=== PATIENT | male | born 1985 | race Asian ===

== ENCOUNTER 2018-02-22 19:09 | Emergency (ER) | payer MEDICAID ==
--- NOTE | 2018-02-22 19:19 | ED Physician Documentation ---
History of Present Illness - Stated complaint Stated Complaint: SLEEP ISSUES - Chief complaint Chief Complaint: General - History obtained from History obtained from: Patient, Family () - History of Present Illness Timing: How many days ago (2) Pain level max: 0 Pain level now: 0 Improved by: nothing Worsened by: nothing - Additonal information Additional information: Patient is a 32-year-old male who presents to the emergency department with a complaint of not been able sleep for the past 2 days. Feeling anxious. Denies any drug or alcohol use. Patient states that he quit smoking a month ago. States increased stress recently. Review of Systems Ten Systems: 10 systems reviewed and negative Constitutional: denies: Fever, Chills Nose: denies: Rhinorrhea / runny nose, Congestion Cardiac: denies: Palpitations Respiratory: denies: Cough GI: denies: Abdominal Pain, Vomiting, Diarrhea PD PAST MEDICAL HISTORY - Past Medical History Past Medical History: No - Past Surgical History Past Surgical History: No - Present Medications Home Medications: Ambulatory Orders Medication Instructions Recorded Confirmed No Known Home Medications 02/22/18 02/22/18 - Allergies Allergies/Adverse Reactions: Allergies Allergy/AdvReac Type Severity Reaction Status Date / Time No Known Drug Allergies Allergy Verified 02/22/18 19:17 - Living Situation Living Situation: reports: With family Living Arrangement: reports: At home - Social History Does the pt smoke?: No Does the pt drink ETOH?: Yes Does the pt have substance abuse?: No PD ED PE NORMAL - Vitals Vital signs reviewed: Yes - General General: Alert and oriented X 3, Other (darting eyes, restless) - HEENT HEENT: PERRL, Moist mucous membranes - Neck Neck: Supple, no meningeal sign - Cardiac Cardiac: Strong equal pulses, Other (tachycardic) - Respiratory Respiratory: No respiratory distress, Clear bilaterally - Abdomen Abdomen: Soft, Non tender, Non distended - Back Back: No spinal TTP - Derm Derm: Warm and dry - Extremities Extremities: No edema - Neuro Neuro: Alert and oriented X 3 Results - Vitals Vitals: Vital Signs - 24 hr 02/22/18 02/22/18 19:13 20:25 Temperature 36.8 C Heart Rate 138 H 118 H Respiratory 18 18 Rate Blood Pressure 148/115 H 148/106 H O2 Saturation 98 99 Oxygen O2 Source Room air - Labs Labs: Laboratory Tests 02/22/18 02/22/18 02/22/18 19:28 19:48 19:48 WBC 19.2 H RBC 5.40 Hgb 16.1 Hct 46.7 MCV 86.5 MCH 29.9 MCHC 34.6 RDW 13.0 Plt Count 271 MPV 7.3 L Neut # (Auto) 13.5 H Lymph # (Auto) 3.7 H [place] # (Auto) 1.5 H Eos # (Auto) 0.2 Baso # (Auto) 0.3 H Absolute Nucleated RBC 0.00 Nucleated RBC % 0.0 Sodium 136 Potassium 3.5 Chloride 98 L Carbon Dioxide 24 Anion Gap 14.0 H BUN 25 H Creatinine 1.3 H Estimated GFR (MDRD) 64 L Glucose 118 H Calcium 9.9 Total Bilirubin 1.7 H AST 38 ALT 53 Alkaline Phosphatase 77 Total Protein 9.4 H Albumin 5.5 Globulin 3.9 Albumin/Globulin Ratio 1.4 Lipase 22 TSH Urine Color DARK YELLOW Urine Clarity CLEAR Urine pH 5.5 Ur Specific [place] >=1.030 H Urine Protein NEGATIVE Urine Glucose (UA) NEGATIVE Urine Ketones NEGATIVE Urine Occult Blood TRACE-LYSE Urine Nitrite NEGATIVE Urine Bilirubin SMALL H Urine Urobilinogen 0.2 (NORMAL) Ur Leukocyte Esterase NEGATIVE Ur Microscopic Review NOT INDICATED Urine Culture Comments NOT INDICATED Salicylates < 6.0 Urine Opiates Screen NEGATIVE Ur Oxycodone Screen NEGATIVE Urine Methadone Screen NEGATIVE Ur Propoxyphene Screen NEGATIVE Acetaminophen < 10 L Ur Barbiturates Screen NEGATIVE Ur Tricyclics Screen NEGATIVE Ur Phencyclidine Scrn NEGATIVE Ur Amphetamine Screen POSITIVE H U Methamphetamines Scrn POSITIVE H U Benzodiazepines Scrn NEGATIVE Urine Cocaine Screen NEGATIVE U Cannabinoids Screen NEGATIVE Ethyl Alcohol < 5.0 02/22/18 19:48 WBC RBC Hgb Hct MCV MCH MCHC RDW Plt Count MPV Neut # (Auto) Lymph # (Auto) [place] # (Auto) Eos # (Auto) Baso # (Auto) Absolute Nucleated RBC Nucleated RBC % Sodium Potassium Chloride Carbon Dioxide Anion Gap BUN Creatinine Estimated GFR (MDRD) Glucose Calcium Total Bilirubin AST ALT Alkaline Phosphatase Total Protein Albumin Globulin Albumin/Globulin Ratio Lipase TSH 1.75 Urine Color Urine Clarity Urine pH Ur Specific [place] Urine Protein Urine Glucose (UA) Urine Ketones Urine Occult Blood Urine Nitrite Urine Bilirubin Urine Urobilinogen Ur Leukocyte Esterase Ur Microscopic Review Urine Culture Comments Salicylates Urine Opiates Screen Ur Oxycodone Screen Urine Methadone Screen Ur Propoxyphene Screen Acetaminophen Ur Barbiturates Screen Ur Tricyclics Screen Ur Phencyclidine Scrn Ur Amphetamine Screen U Methamphetamines Scrn U Benzodiazepines Scrn Urine Cocaine Screen U Cannabinoids Screen Ethyl Alcohol PD MEDICAL DECISION MAKING - ED course Complexity details: reviewed results, re-evaluated patient, considered differential, d/w patient, d/w family ED course: 32-year-old male high on methamphetamines. Initially denied any drug use, but after urine tox results, he admitted to last using meth yesterday. He and his were given resources for detox. No other acute abnormalities at this time. He is well-appearing, nontoxic. Afebrile. Will allow him to go home with his . Patient and family counseled regarding signs and symptoms for which I believe and urgent re-evaluation would be necessary. Patient with good understanding of and agreement to plan and is comfortable going home at this time This document was made in part using voice recognition software. While efforts are made to proofread this document, sound alike and grammatical errors may occur. No hallucinations or delusions Departure - Departure Disposition: 01 Home, Self Care Clinical Impression: Methamphetamine abuse Condition: Good Instructions: ED Drug Abuse General Follow-Up: Onesimo Galo MD [Primary Care Provider] - Within 1 week Comments: You need to stop using methamphetamines. This is causing you not to sleep. Follow up with your doctor for further care. Discharge Date/Time: 02/22/18 20:26
[2018-02-22 19:38] LABS: MUDS CUTOFF CONCENTRATIONS CUTOFF CONC BELOW:
[2018-02-22 19:45] LABS: GLUCOSE, URINE (UA) NEGATIVE (NEGATIVE); KETONES,URINE (UA) NEGATIVE (NEGATIVE); LEUKOCYTE ESTERASE, URINE NEGATIVE (NEGATIVE); NITRITE,URINE NEGATIVE (NEGATIVE); OCCULT BLOOD,URINE TRACE-LYSE (NEGATIVE); PH,URINE 5.5 PH (5.0-7.5); PROTEIN,URINE NEGATIVE (NEGATIVE); UROBILINOGEN,URINE 0.2 (NORMAL) E.U./dL (NORMAL)
[2018-02-22 19:52] LABS: BILIRUBIN,URINE SMALL (NEGATIVE); CLARITY,URINE CLEAR (CLEAR); ICTOTEST,URINE POSITIVE
[2018-02-22 19:57] LABS: AMPHETAMINE SCREEN,URINE POSITIVE (NEGATIVE); COCAINE SCREEN URINE NEGATIVE (NEGATIVE); METHAMPHETAMINES SCREEN, URINE POSITIVE (NEGATIVE); OPIATE SCREEN, URINE NEGATIVE (NEGATIVE)
[2018-02-22 19:58] LABS: BENZODIAZEPINES SCREEN, URINE NEGATIVE (NEGATIVE); METHADONE SCREEN, URINE NEGATIVE (NEGATIVE); OXYCODONE SCREEN, URINE NEGATIVE (NEGATIVE); PROPOXYPHENE SCREEN, URINE NEGATIVE (NEGATIVE); TRICYCLIC ANTIDEPRESSANT,URINE NEGATIVE (NEGATIVE)
[2018-02-22 20:04] LABS: BASOPHILS # (AUTO) 0.3 10^3/uL (0.0-0.1); BASOPHILS % (AUTO) 1.5 %; EOSINOPHILS # (AUTO) 0.2 10^3/uL (0.0-0.7); EOSINOPHILS % (AUTO) 1.1 %; HGB - HEMOGLOBIN 16.1 g/dL (14.0-18.0); LYMPHOCYTES # (AUTO) 3.7 10^3/uL (1.5-3.5); LYMPHOCYTES % (AUTO) 19.4 %; MEAN CORPUSCULAR HEMOGLOBIN 29.9 pg (27.0-31.0); MEAN CORPUSCULAR HGB CONC 34.6 g/dL (32.0-36.0); MEAN CORPUSCULAR VOLUME 86.5 fL (80.0-94.0); MEAN PLATELET VOLUME 7.3 fL (7.4-11.4); MONOCYTES # (AUTO) 1.5 10^3/uL (0.0-1.0); MONOCYTES % (AUTO) 7.7 %; NEUTROPHILS # (AUTO) 13.5 10^3/uL (1.5-6.6); NEUTROPHILS % (AUTO) 70.3 %; PLT - PLATELET COUNT 271 10^3/uL (130-450); WHITE BLOOD COUNT 19.2 x10^3/uL (4.8-10.8)
[2018-02-22 20:13] LABS: ACETAMINOPHEN < 10 ug/mL (10-30); ALBUMIN 5.5 g/dL (3.2-5.5); ALBUMIN/GLOBULIN RATIO 1.4 (1.0-2.2); ALKALINE PHOSPHATASE 77 IU/L (42-121); ALT ALANINE AMINOTRANSFERASE 53 IU/L (10-60); AST ASPARTATE AMINOTRANSFERASE 38 IU/L (10-42); BILIRUBIN,TOTAL 1.7 mg/dL (0.2-1.0); BUN - BLOOD UREA NITROGEN 25 mg/dL (6-20); CALCIUM 9.9 mg/dL (8.5-10.3); CARBON DIOXIDE - CO2 24 mmol/L (21-32); CHLORIDE 98 mmol/L (101-111); CREATININE 1.3 mg/dL (0.6-1.2); GFR - MDRD 64 (>89); GLUCOSE 118 mg/dL (70-100); LIPASE 22 U/L (22-51); SALICYLATE < 6.0 mg/dL; SODIUM 136 mmol/L (135-145); TOTAL PROTEIN 9.4 g/dL (6.7-8.2)
[2018-02-22 20:26] VITALS: BP 148/106
== END 2018-02-22 20:26 | disposition home or self-care (01) ==
LOC: ED 19:09
DX: F15.10 Other stimulant abuse, uncomplicated (principal)
CPT/HCPCS: 36415; 80053; 80306; 80307; 80320; 80329; 81001; 81003; 83690; 84443; 85025; 87086; 93005; 99283

== ENCOUNTER 2018-04-04 08:00 | Outpatient (CLI) | payer MEDICAID ==
[2018-04-04 12:46] LABS: BASOPHILS % (AUTO) 0.2 %; EOSINOPHILS # (AUTO) 0.5 10^3/uL (0.0-0.7); EOSINOPHILS % (AUTO) 3.5 %; HGB - HEMOGLOBIN 14.9 g/dL (14.0-18.0); LYMPHOCYTES # (AUTO) 3.5 10^3/uL (1.5-3.5); LYMPHOCYTES % (AUTO) 26.9 %; MEAN CORPUSCULAR HEMOGLOBIN 29.3 pg (27.0-31.0); MEAN CORPUSCULAR HGB CONC 34.5 g/dL (32.0-36.0); MEAN CORPUSCULAR VOLUME 84.9 fL (80.0-94.0); MONOCYTES # (AUTO) 0.7 10^3/uL (0.0-1.0); MONOCYTES % (AUTO) 5.6 %; NEUTROPHILS # (AUTO) 8.3 10^3/uL (1.5-6.6); NEUTROPHILS % (AUTO) 63.8 %; PLT - PLATELET COUNT 271 10^3/uL (130-450); RED BLOOD COUNT 5.08 10^6/uL (4.70-6.10); RED CELL DISTRIBUTION WIDTH 12.9 % (12.0-15.0)
[2018-04-04 12:56] LABS: ALBUMIN 4.7 g/dL (3.2-5.5); ALBUMIN/GLOBULIN RATIO 1.6 (1.0-2.2); ALKALINE PHOSPHATASE 67 IU/L (42-121); ALT ALANINE AMINOTRANSFERASE 29 IU/L (10-60); AST ASPARTATE AMINOTRANSFERASE 20 IU/L (10-42); BILIRUBIN,TOTAL 0.9 mg/dL (0.2-1.0); BUN - BLOOD UREA NITROGEN 18 mg/dL (6-20); CALCIUM 9.4 mg/dL (8.5-10.3); CARBON DIOXIDE - CO2 26 mmol/L (21-32); CHLORIDE 102 mmol/L (101-111); CHOL/HDL RATIO 6.7 (<5.0); CHOLESTEROL 209 mg/dL; CREATININE 1.1 mg/dL (0.6-1.2); GFR - MDRD 77 (>89); GLUCOSE 100 mg/dL (70-100); HDL CHOLESTEROL 31 mg/dL; LDL CHOLESTEROL,CALCULATED 133 mg/dL; LDL/HDL RATIO 4.3 (<3.6); SODIUM 137 mmol/L (135-145); TOTAL PROTEIN 7.6 g/dL (6.7-8.2); URIC ACID 10.9 mg/dL (2.6-7.2); VLDL CHOLESTEROL 45 mg/dL
== END 2018-04-04 23:59 | disposition home or self-care (01) ==
LOC: LAB.N 08:00
PROVIDERS: ATTEND Physician Assistant Medical
DX: F33.0 Major depressive disorder, recurrent, mild (principal); F41.1 Generalized anxiety disorder; E78.1 Pure hyperglyceridemia; E66.9 Obesity, unspecified; M10.9 Gout, unspecified
CPT/HCPCS: 36415; 80053; 80061; 83721; 84443; 84550; 85025

== ENCOUNTER 2019-02-05 09:02 | Outpatient (CLI) | payer MEDICAID | END 2019-02-05 23:59 | disposition home or self-care (01) | LOC: LAB.N 09:02 | PROVIDERS: ATTEND Physician Assistant Medical | DX: E79.0 Hyperuricemia without signs of inflammatory arthritis and tophaceous disease (principal); M10.9 Gout, unspecified | CPT/HCPCS: 36415; 84550 ==

== ENCOUNTER 2019-03-23 08:00 | Outpatient (CLI) | payer MEDICAID ==
[2019-03-23 12:29] LABS: CHOL/HDL RATIO 5.6 (<5.0); CHOLESTEROL 219 mg/dL; HDL CHOLESTEROL 39 mg/dL
[2019-03-23 13:17] LABS: LDL CHOLESTEROL,DIRECT 111 mg/dL; LDLD/HDL RATIO 2.8 (<3.6)
== END 2019-03-23 23:59 | disposition home or self-care (01) ==
LOC: LAB.N 08:00
PROVIDERS: ATTEND Physician Assistant Medical
DX: E78.5 Hyperlipidemia, unspecified (principal)
CPT/HCPCS: 36415; 80061; 83721

== ENCOUNTER 2019-11-19 13:36 | Outpatient (CLI) | payer MEDICAID | END 2019-11-19 13:37 | disposition home or self-care (01) | LOC: LAB 13:36 | PROVIDERS: ATTEND Physician Assistant Medical | DX: R50.9 Fever, unspecified (principal); Z20.828 Contact with and (suspected) exposure to other viral communicable diseases ==

== ENCOUNTER 2022-08-18 09:10 | Outpatient (CLI) | payer MEDICAID ==
[2022-08-18 12:04] LABS: ALBUMIN 4.4 g/dL (3.2-5.5); ALKALINE PHOSPHATASE 111 IU/L (42-121); ALT ALANINE AMINOTRANSFERASE 77 IU/L (10-60); AST ASPARTATE AMINOTRANSFERASE 42 IU/L (10-42); BASOPHILS % (AUTO) 0.3 %; BILIRUBIN,TOTAL 0.5 mg/dL (0.2-1.0); BUN - BLOOD UREA NITROGEN 13 mg/dL (6-20); CARBON DIOXIDE - CO2 28 mmol/L (21-32); CHLORIDE 102 mmol/L (101-111); CHOL/HDL RATIO 5.7 (<5.0); CHOLESTEROL 238 mg/dL; CREATININE 0.8 mg/dL (0.6-1.2); EOSINOPHILS # (AUTO) 0.4 10^3/uL (0.0-0.7); EOSINOPHILS % (AUTO) 3.7 %; GFR - MDRD 109 (>89); GLUCOSE 88 mg/dL (70-100); HCT - HEMATOCRIT 44.6 % (42.0-52.0); HDL CHOLESTEROL 42 mg/dL; HGB - HEMOGLOBIN 14.2 g/dL (14.0-18.0); LDL CHOLESTEROL,CALCULATED 129 mg/dL; LDL/HDL RATIO 3.1 (<3.6); LYMPHOCYTES # (AUTO) 3.4 10^3/uL (1.5-3.5); LYMPHOCYTES % (AUTO) 29.1 %; MEAN CORPUSCULAR HEMOGLOBIN 27.6 pg (27.0-31.0); MEAN CORPUSCULAR HGB CONC 31.8 g/dL (32.0-36.0); MEAN CORPUSCULAR VOLUME 86.8 fL (80.0-94.0); MEAN PLATELET VOLUME 8.6 fL (7.4-11.4); MONOCYTES # (AUTO) 0.7 10^3/uL (0.0-1.0); MONOCYTES % (AUTO) 6.3 %; NEUTROPHILS # (AUTO) 7.1 10^3/uL (1.5-6.6); PLT - PLATELET COUNT 429 10^3/uL (130-450); POTASSIUM 4.4 mmol/L (3.5-5.0); RED BLOOD COUNT 5.14 10^6/uL (4.70-6.10); RED CELL DISTRIBUTION WIDTH 12.2 % (12.0-15.0); SODIUM 137 mmol/L (135-145); TRIGLYCERIDES 334 mg/dL; URIC ACID 7.6 mg/dL (2.6-7.2); VLDL CHOLESTEROL 67 mg/dL; WHITE BLOOD COUNT 11.8 x10^3/uL (4.8-10.8)
== END 2022-08-18 09:11 | disposition home or self-care (01) ==
LOC: LAB.N 09:10
PROVIDERS: ATTEND Nurse Practitioner
DX: E78.5 Hyperlipidemia, unspecified (principal); Z51.81 Encounter for therapeutic drug level monitoring; M10.9 Gout, unspecified
CPT/HCPCS: 36415; 80053; 80061; 83721; 84550; 85025

== ENCOUNTER 2024-03-07 18:05 | Observation (INO) ==
[2024-03-07 18:32] LABS: BASOPHILS % (AUTO) 0.2 %; EOSINOPHILS # (AUTO) 0.1 10^3/uL (0.0-0.7); EOSINOPHILS % (AUTO) 0.5 %; HCT - HEMATOCRIT 40.7 % (42.0-52.0); HGB - HEMOGLOBIN 14.2 g/dL (14.0-18.0); LYMPHOCYTES # (AUTO) 1.4 10^3/uL (1.5-3.5); LYMPHOCYTES % (AUTO) 9.5 %; MEAN CORPUSCULAR HEMOGLOBIN 29.5 pg (27.0-31.0); MEAN CORPUSCULAR HGB CONC 34.9 g/dL (32.0-36.0); MEAN CORPUSCULAR VOLUME 84.6 fL (80.0-94.0); MEAN PLATELET VOLUME 8.3 fL (7.4-11.4); MONOCYTES # (AUTO) 1.4 10^3/uL (0.0-1.0); MONOCYTES % (AUTO) 8.9 %; NEUTROPHILS # (AUTO) 12.2 10^3/uL (1.5-6.6); NEUTROPHILS % (AUTO) 80.1 %; PLT - PLATELET COUNT 304 10^3/uL (130-450); RED BLOOD COUNT 4.81 10^6/uL (4.70-6.10); RED CELL DISTRIBUTION WIDTH 12.3 % (12.0-15.0); WHITE BLOOD COUNT 15.2 x10^3/uL (4.8-10.8)
--- NOTE | 2024-03-07 18:39 | ED Physician Documentation ---
History of Present Illness Stated complaint Stated Complaint: AMS Chief complaint Chief Complaint: General Additonal information Additional information: 38-year-old male with history of gout, methamphetamine use, smoking presents with [facility] via EMS. Reportedly, patient's said the patient seemed confused today and was concerned he might have taken something on Tuesday, several days ago, because he has not slept or eaten well since then. Patient's right hand showed some redness with streaking. He has history of drug use. Patient has trouble providing additional history. Spouse here states this has not had before, though otherwise has no additional history beyond above, stating she was not aware patient's hand was swollen for that he had a fever. She is not aware how long ago last drug use was. Please note I am seeing this patient at the very end of my shift to initiate care given potential sepsis and will be signing out to oncoming ER physician. Review of Systems ROS: patient and spouse unable to provide additional information beyond above Meds/Allgy Home Medications Ambulatory Orders Medication Instructions Recorded Confirmed albuterol sulfate 90 mcg/actuation 2 inh inhalation QID #1 ea 02/12/24 breath activated powder inhaler benzonatate 100 mg capsule 100 mg PO TID #90 caps 02/12/24 guaifenesin 600 mg tablet, 600 mg PO BID #60 tabs 02/12/24 extended release 12 hr (Mucinex) Allergies Allergies Allergy/AdvReac Type Severity Reaction Status Date / Time No Known Drug Allergies Allergy Verified 03/07/24 18:23 [facility] Medical History Medical History Gout Methamphetamine abuse Social History Social History Smoking Status: Former smoker Living arrangement: At home Living Condition: With family Relationship: Spouse History of Abuse: No Frequency: Occasional Substance Use: denies use POLST Patient has POLST: No Exam Exam Const: no acute distress, +toxic appearing; patient confused, looking around room, unable to cooperate with exam or answer questions, making mumbling sounds Eyes: PERRLA, EOMI, no photophobia ENT: mucous membranes moist Neck: supple, non-tender; no pain or stiffness with flexion Resp: no respiratory distress, clear to auscultation bilaterally Card: regular tachycardia 140s, no murmurs Abd: non tender diffusely, no rigidity or rebound or guarding Back: no T or L spine tenderness, no CVA tenderness bilaterally Extrem: no deformities, no swelling bilateral lower extremities; R thumb with interphalangeal joint erythema, swelling and tenderness, with blanching erythema streaking to forearm Neuro: Alert but not oriented, insect control inspector grossly intact, grossly intact sensation and strength all extremities, no lateralizing signs, no clonus bilateral lower extremities Skin: no rash, warm and dry Results Vitals Vitals: Vital Signs - 24 hr 03/07/24 18:13 03/07/24 18:46 03/07/24 19:04 Temperature 38.3 C H Temperature Source Oral Pulse Rate 134 H 144 H 126 H Respiratory Rate 17 24 18 Blood Pressure 175/120 H 166/114 H 155/106 H O2 Saturation 99 100 98 O2 Source Room air Room air Room air Pain Intensity 0 Oxygen O2 Source Room air Labs Labs: Laboratory Tests 03/07/24 18:17 WBC 15.2 H RBC 4.81 Hgb 14.2 Hct 40.7 L MCV 84.6 MCH 29.5 MCHC 34.9 RDW 12.3 Plt Count 304 MPV 8.3 Neut # (Auto) 12.2 H Lymph # (Auto) 1.4 L [place] # (Auto) 1.4 H Eos # (Auto) 0.1 Baso # (Auto) 0.0 Absolute Nucleated RBC 0.00 Nucleated RBC % 0.0 Sodium 133 L Potassium 3.2 L Chloride 99 L Carbon Dioxide 18 L Anion Gap 16.0 H BUN 18 Creatinine 1.5 H Estimated GFR (MDRD) 52 L Glucose 128 H Calcium 10.2 Total Bilirubin 1.4 H AST 22 ALT 23 Alkaline Phosphatase 78 Total Protein 8.6 Albumin 4.6 Globulin 4.0 Albumin/Globulin Ratio 1.2 Lipase 19 TSH 2.01 Salicylates < 1.5 Acetaminophen 0.4 Ethyl Alcohol < 10.0 PD Medical Decision Making ED course ED course: This patient presents altered, febrile, tachycardic, meeting septic criteria, with a broad differential I considered including sepsis such as from cellulitis, septic arthritis, pneumonia, urinary infection, meningitis less likely in the setting of no meningeal signs on exam. He has benign abdomen. Given reported history of substance use, he would also be at risk for endocarditis, though no murmur on exam. Toxicologic causes also considered. No clonus or elevated tone to suggest serotonin syndrome or NMS currently. Salicylate or diphenhydramine overdose possible though would seem less likely with reported multiple days of symptoms. I am ordering broad and aggressive workup with CBC, CMP, Tylenol and salicylate and ethanol levels, blood cultures x 2, lactate, EKG, viral swab, chest x-ray, TSH. I am giving 2 L normal saline with IV Tylenol and broad- spectrum antibiotics with vancomycin, cefepime, Flagyl. I am seeing this patient as noted at the very end of my shift and initiating workup, with anticipation of signout soon to oncoming physician for reassessment and completion of workup. EKG sinus tachycardia without acute ischemia or immediately concerning interval prolongation on my review. Signing out to insurance billing specialist Dr. Zaman at 1900 with plan to complete work up as above and closely reassess. Patient currently hypertensive, not hypotensive, with <2s cap refill on exam. Discharge Plan Discharge Prescriptions: No Action guaifenesin [Mucinex] 600 mg tablet extended release 12hr 600 mg PO BID Qty: 60 0RF albuterol sulfate 90 mcg/actuation aerosol powdr breath activated 2 inh inhalation QID Qty: 1 2RF benzonatate 100 mg capsule 100 mg PO TID Qty: 90 0RF Print Language: Burkinan Stand Alone Forms: PCP List
[2024-03-07 18:42] LABS: ACETAMINOPHEN 0.4 ug/mL; ETOH - ETHANOL < 10.0 mg/dL; LIPASE 19 U/L (11-82)
[2024-03-07 18:47] LABS: ALBUMIN 4.6 g/dL (3.2-5.5); ALBUMIN/GLOBULIN RATIO 1.2 (1.0-2.2); ALKALINE PHOSPHATASE 78 IU/L (42-121); ALT ALANINE AMINOTRANSFERASE 23 IU/L (10-60); AST ASPARTATE AMINOTRANSFERASE 22 IU/L (10-42); BILIRUBIN,TOTAL 1.4 mg/dL (0.2-1.0); BUN - BLOOD UREA NITROGEN 18 mg/dL (6-20); CALCIUM 10.2 mg/dL (8.5-10.3); CARBON DIOXIDE - CO2 18 mmol/L (21-32); CHLORIDE 99 mmol/L (101-111); CREATININE 1.5 mg/dL (0.6-1.3); GFR - MDRD 52 (>89); GLUCOSE 128 mg/dL (74-104); POTASSIUM 3.2 mmol/L (3.5-4.5); SALICYLATE < 1.5 mg/dL; SODIUM 133 mmol/L (135-145); TOTAL PROTEIN 8.6 g/dL (6.4-8.9)
[2024-03-07 18:53] LABS: THYROID STIMULATING HORMONE 2.01 uIU/mL (0.34-5.60)
[2024-03-07] MEDS: SODIUM CHLORIDE 0.9% 2,000 ML IV STA (19:21)
[2024-03-07] MEDS: ACETAMINOPHEN 1,000 MG/100 ML 1,000 MG/100 ML BAG IV ONE (19:22)
[2024-03-07] MEDS: CEFEPIME 2 GM in SODIUM CHLORIDE 0.9% MINIBAG 100 ML IV STA (19:22)
[2024-03-07 19:41] LABS: THYROID STIMULATING HORMONE 1.99 uIU/mL (0.34-5.60)
[2024-03-07] MEDS: metroNIDAZOLE 500 MG/100 ML 500 MG/100 ML BAG IV ONE (19:48)
--- NOTE | 2024-03-07 19:52 | XRAY Report ---
PROCEDURE: XR Chest 1V INDICATIONS: AMS, fever TECHNIQUE: One view of the chest was acquired. COMPARISON: 02/12/2024. FINDINGS: Surgical changes and devices: None. Lungs and pleura: No pleural effusions or pneumothorax. Low lung volumes. No consolidation. Mediastinum: Mediastinal contours appear normal. Heart size is normal. Bones and chest wall: No suspicious bony lesions. Overlying soft tissues appear unremarkable. IMPRESSION: No acute cardiopulmonary process. Reviewed by: Constantine Villeda MD on 03/07/2024 7:51 PM PST Approved by: Constantine Villeda MD on 03/07/2024 7:51 PM PST Station ID: [id number]
[2024-03-07] MEDS: VANCOMYCIN INJ 2 GM in SODIUM CHLORIDE 0.9% 500 ML IV STA (19:57)
[2024-03-07 20:09] LABS: B. PARAPERTUSSIS- RESP PCR PAN NOT DETECTED; B. PERTUSSIS- RESP PCR PANEL NOT DETECTED; C. PNEUMONIAE- RESP PCR PANEL NOT DETECTED; CORONAVIRUS 229E-RESP PCR NOT DETECTED; CORONAVIRUS HKU1-RESP PCR NOT DETECTED; CORONAVIRUS NL63-RESP PCR NOT DETECTED; CORONAVIRUS OC43-RESP PCR NOT DETECTED; HUMAN METAPNEUMOVIRUS NOT DETECTED; INFLUENZA A- RESP PCR PANEL NOT DETECTED; INFLUENZA B - RESP PCR PANEL NOT DETECTED; M. PNEUMONIAE- RESP PCR PANEL NOT DETECTED; PARAINFLUENZA VIRUS 1 NOT DETECTED; PARAINFLUENZA VIRUS 2 NOT DETECTED; PARAINFLUENZA VIRUS 3 NOT DETECTED; PARAINFLUENZA VIRUS 4 NOT DETECTED; RHINOVIRUS/ENTEROVIRUS NOT DETECTED; RSV- RESP PCR PANEL NOT DETECTED; SARS-CoV-2 -RESP PCR PANEL NOT DETECTED
[2024-03-07] MEDS: KETOROLAC 30 MG/ML VIAL IVP STA (20:54)
[2024-03-07] MEDS: diphenhydrAMINE INJ 50 MG/ML VIAL IVP STA (21:15)
[2024-03-07] MEDS: methylPREDNISolone SUCCINATE 125 MG/2 ML VIAL IVP STA (21:17)
--- NOTE | 2024-03-07 21:40 | CT Report ---
PROCEDURE: CT Head WO INDICATIONS: AMS TECHNIQUE: Noncontrast 4.5 mm thick angled axial sections acquired from the foramen magnum to the vertex. For r adiation dose reduction, the following was used: automated exposure control, adjustment of mA and/or kV according to patient size. COMPARISON: None. FINDINGS: Image quality: Excellent. CSF spaces: Basal cisterns are patent. No extra-axial fluid collections. Ventricles are normal in size and shape. Brain: No midline shift. No intracranial masses or hemorrhage. Gross-white matter interface is norm al. Skull and face: Calvarium and visualized facial bones are intact, without suspicious lesions. Sinuses: Mucosal thickening or mucous retention cyst at the left maxillary sinus. Mastoids are clear. IMPRESSION: No acute intracranial pathology. Reviewed by: Konstantin Hayden MD on 03/07/2024 9:39 PM PST Approved by: Konstantin Hayden MD on 03/07/2024 9:39 PM PST Station ID: [id number]
[2024-03-07 22:10] LABS: BILIRUBIN,URINE NEGATIVE (NEGATIVE); GLUCOSE, URINE (UA) NEGATIVE (NEGATIVE); KETONES,URINE (UA) 15 mg/dL (NEGATIVE); LEUKOCYTE ESTERASE, URINE NEGATIVE (NEGATIVE); NITRITE,URINE NEGATIVE (NEGATIVE); OCCULT BLOOD,URINE NEGATIVE (NEGATIVE); PROTEIN,URINE NEGATIVE (NEGATIVE); UROBILINOGEN,URINE 0.2 (NORMAL) E.U./dL (NORMAL)
[2024-03-07 22:12] LABS: CLARITY,URINE CLEAR (CLEAR)
[2024-03-07 22:20] LABS: AMPHETAMINE SCREEN,URINE POSITIVE (NEGATIVE); BARBITURATE SCREEN,UR NEGATIVE (NEGATIVE); BENZODIAZEPINES SCREEN, URINE NEGATIVE (NEGATIVE); BUPRENORPHINE SCREEN, URINE NEGATIVE (NEGATIVE); COCAINE SCREEN URINE NEGATIVE (NEGATIVE); METHADONE SCREEN, URINE NEGATIVE (NEGATIVE); METHAMPHETAMINES SCREEN, URINE POSITIVE (NEGATIVE); OPIATE SCREEN, URINE NEGATIVE (NEGATIVE); OXYCODONE SCREEN, URINE NEGATIVE (NEGATIVE); THC CANNABINOID SCREEN, URINE NEGATIVE (NEGATIVE); TRICYCLIC ANTIDEPRESSANT,URINE NEGATIVE (NEGATIVE)
[2024-03-07] MEDS: LORazepam 2 MG/ML VIAL IVP STA (22:38)
[2024-03-07] MEDS ORDERED: LORazepam 2 MG/ML VIAL IVP PRN (22:55)
--- NOTE | 2024-03-07 23:16 | HISTORY & PHYSICAL EXAMINATION ---
Chief Complaint Chief Complaint Chief Complaint: altered mental status History of Present Illness Admitted From Admitted From:: home History Obtained From Records Reviewed: yes History obtained from: ED physician, Exam Limitations: Acute confusion, telemedicine History of Present Illness HPI Comment/Other: Mr. Martinez is a 38yoM with a history of hypertension, gout and polysubstance abuse. He was brought in by EMS for persistent confusion that started 3 days prior to his presentation. In the ED patient was alert, but appeared agitated. CT head was negative. UA was positive for amphetamines. is uncertain when or how much he has been using. patient met SIRS criteria on presentation. No actual source of infection. He has bilateral swelling of his hand, but his explained that it appeared to be typical of an acute gout flare. Patient did not endorse MOMIN, vision changes, neck or chest pain. He had to receive sedatives due to increase agitation. Due to the worsening of his mental status and the possibility of sepsis, I will admit the patient for further evaluation and management during my evaluation. Patient was resting, secondary to Ativan sedation given by Ed provider. was at bedside. Plan of care was discussed including monitor for suspected drug-induced psychosis and evaluation for possible infection. she agreed with the plan of care. she is serving as the patient's POA. This visit was performed using telemedicine tools including phone and live-video. Review of Systems Status of ROS: 10 or more systems reviewed and unremarkable except as noted in history and below [facility] Medical History Medical History (Updated 03/08/24 @ 00:00 by Ranjana Schilling RN) H/O: HTN (hypertension) Gout Methamphetamine abuse Social History Social History Smoking Status: Former smoker Living arrangement: At home Living Condition: With family Relationship: Spouse History of Abuse: No Frequency: Occasional Substance Use: denies use POLST Patient has POLST: No Meds/Allgy Home Medications Ambulatory Orders Medication Instructions Recorded Confirmed allopurinol 300 mg tablet 300 mg PO DAILY 03/07/24 03/07/24 colchicine 0.6 mg tablet 0.6 mg PO DAILY PRN Gout 03/07/24 03/07/24 indomethacin 50 mg capsule 50 mg PO TID PRN gout 03/07/24 03/07/24 lisinopril 10 mg tablet 10 mg PO DAILY 03/07/24 03/07/24 Allergies Allergies Allergy/AdvReac Type Severity Reaction Status Date / Time vancomycin Allergy Hives Verified 03/07/24 23:52 Exam Exam Examination , as recorded, was obtained from staff or patient reported finding, and through peripheral observation Constitutional normal general appearance and no apparent distress HENMT normocephalic Eyes PERRL and EOMs intact bilaterally Neck/C-Spine visual inspection normal, cervical spine nontender, cervical full ROM noted and no meningeal signs Respiratory breath sounds equal bilaterally and no use of accessory muscles Cardiovascular heart rate abnormal (tachycardic) and regular rhythm noted Neurology corner trimmer operator II-XII intact, movement abnormality noted (tics) and no focal motor deficit noted Psychiatry mental status abnormal, orientation abnormal and psychomotor abnormality noted (agitated), (restless) and (hyperactive) Conclusion/Plan Problem List (1) AMS (altered mental status): Plan: Suspected substance induced. Infection can not be excluded although less likely, workup negative. Negative clinical finding of acute DEVELOPMENTAL MATHEMATICS PROFESSOR infection. I Will continue to monitor and manage as follows: - I have reviewed CT head: without any acute intracranial process -I have reviewed pertinent labs: UA consistent amphetamine abuse. No reports from family of patient taking medications that could result in false positive. -I will order for close monitoring with serial neurochecks as appropriate -I will order to continue Ativan 1mg IV for acute agitation and substance withdrawals -i will order urine analysis with cultures (if appropriate) and blood cultures have been ordered to evaluate for possible infectious etiology -If symptoms do not improve with conservative manage or if patient should spike fevers or become worse further evaluation may be warranted by additional imaging with MRI, EEG and neurology consultation Qualifiers: Altered mental status type: delirium Qualified Code(s): R41.0 - Disorientation, unspecified (2) SIRS (systemic inflammatory response syndrome): Plan: SIRS criteria met: fever, tachycardia, leukocytosis. Normal lactic.suspected acute stress response in the setting of amphetamine toxicity. Will evaluate for additional sources and manage as follows: -follow up cultures for source of possible infection -i will initiate empiric antibiotic coverage with cefepime and vancomycin, and will monitor drug levels to avoid toxicity or adverse affects. Will avoid MAO inhibiter such as linezolid in the setting of amphetamine toxicity -I have reviewed viral panel, which was negative -I will manage fevers and pain conservatively with tylenol and ibuprofen, to avoid opiods. - I have ordered for continuos telemetry to monitor vitals closely,as well as serial bp and temperature checks (3) Gout attack: Plan: Acute on chronic, mainly affecting hands and fingers - I will order an uric acid level -I will continue cholchicine and NSAID for inflammation -Will advise usage of heating and icepacks as needed for breakthrough pain. Qualifiers: Gout site: multiple sites Gout etiology: unspecified cause Qualified Code(s): M10.9 - Gout, unspecified Lab Results Lab results reviewed: Yes 03/07/24 18:17 03/07/24 18:17 Diagnostic Imaging Results Diagnostic Imaging Results: positive Final report reviewed Core Measures Anticipated LOS I expect patient to be DC'd or transferred within 96 hours.: Yes DVT/VTE - Prophylaxis VTE/DVT Device ordered at admit?: Yes Telemedicine Consult Details Provider Location & Consult Time Telemedicine consultation conducted via videoconferencing?: Yes
[2024-03-08] MEDS ORDERED: ONDANSETRON 4 MG/2 ML VIAL IVP PRN (00:16)
[2024-03-08] MEDS ORDERED: ACETAMINOPHEN 325 MG TABLET PO PRN (00:16)
[2024-03-08] MEDS ORDERED: SODIUM CHLORIDE FLUSH 0.9% 10 ML SYRINGE IVP PRN (00:16)
[2024-03-08] MEDS ORDERED: IBUPROFEN 400 MG TABLET PO PRN (00:16)
[2024-03-08] MEDS ORDERED: INDOMETHACIN 25 MG CAPSULE PO PRN (00:16)
[2024-03-08] MEDS: SODIUM CHLORIDE FLUSH 0.9% 10 ML SYRINGE IVP SCH (00:41)
[2024-03-08] MEDS: SODIUM CHLORIDE 0.9% 1,000 ML IV SCH (00:41)
[2024-03-08 05:45] LABS: BASOPHILS % (AUTO) 0.2 %; EOSINOPHILS % (AUTO) 0.1 %; HCT - HEMATOCRIT 37.7 % (42.0-52.0); HGB - HEMOGLOBIN 12.6 g/dL (14.0-18.0); LYMPHOCYTES % (AUTO) 7.8 %; MEAN CORPUSCULAR HEMOGLOBIN 29.6 pg (27.0-31.0); MEAN CORPUSCULAR HGB CONC 33.4 g/dL (32.0-36.0); MEAN CORPUSCULAR VOLUME 88.7 fL (80.0-94.0); MEAN PLATELET VOLUME 8.5 fL (7.4-11.4); MONOCYTES # (AUTO) 0.2 10^3/uL (0.0-1.0); MONOCYTES % (AUTO) 1.4 %; NEUTROPHILS # (AUTO) 11.1 10^3/uL (1.5-6.6); NEUTROPHILS % (AUTO) 89.9 %; PLT - PLATELET COUNT 289 10^3/uL (130-450); RED BLOOD COUNT 4.25 10^6/uL (4.70-6.10); RED CELL DISTRIBUTION WIDTH 12.4 % (12.0-15.0); WHITE BLOOD COUNT 12.4 x10^3/uL (4.8-10.8)
[2024-03-08 05:58] LABS: ALBUMIN 3.9 g/dL (3.2-5.5); ALBUMIN/GLOBULIN RATIO 1.1 (1.0-2.2); CALCIUM 9.2 mg/dL (8.5-10.3); CREATININE 0.9 mg/dL (0.6-1.3); POTASSIUM 4.2 mmol/L (3.5-4.5); TOTAL PROTEIN 7.6 g/dL (6.4-8.9)
[2024-03-08] MEDS: COLCHICINE 0.6 MG TABLET PO PRN (06:05)
[2024-03-08] MEDS: allopurinoL 100 MG TABLET PO SCH (09:15)
[2024-03-08] MEDS: lisinopriL 5 MG TABLET PO SCH (09:15)
[2024-03-08] MEDS: CEFEPIME 2 GM in SODIUM CHLORIDE 0.9% MINIBAG 100 ML IV SCH (09:16)
[2024-03-08] MEDS: COLCHICINE 0.6 MG TABLET PO SCH (09:17)
[2024-03-08] MEDS: INDOMETHACIN 25 MG CAPSULE PO STA (09:20)
[2024-03-08 10:16] LABS: ESTIMATED AVERAGE GLUCOSE 100 mg/dL (70-100); HEMOGLOBIN A1c% 5.1 % (4.27-6.07)
--- NOTE | 2024-03-08 10:43 | PHARMACY PROGRESS NOTE ---
Best Possible Medication History Admit Date and Time: 03/07/24 [id number] Home Medications Medication Instructions Recorded Confirmed Type allopurinol 300 mg tablet 300 mg PO DAILY 03/07/24 03/07/24 History colchicine 0.6 mg tablet 0.6 mg PO DAILY PRN Gout 03/07/24 03/07/24 History indomethacin 50 mg capsule 50 mg PO TID PRN gout 03/07/24 03/07/24 History lisinopril 10 mg tablet 10 mg PO DAILY 03/07/24 03/07/24 History Processed by: Pharmacy (Medication reconciliation completed by health technicianKelly) Medications reviewed in ED?: No Medication History completed: Yes Patient Interview: Completed Secondary Source(s): Insurance records [facility] Statement: As the person ultimately responsible for medication therapy, providers are able to order a medication from an existing home medication list in [facility] via the "Reconcile Routine" prior to Confirmation of that medication by technical support agent. Such practice is discouraged except when the physician, in their clinical judgment, deems that a medical need exists for a medication without regard to previous use.
[2024-03-08 12:54] VITALS: BP 145/93; TEMP 99.9; O2SAT 94
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
--- NOTE | 2024-03-09 04:54 | ED Physician Documentation ---
ED Addendum Addendum Addendum: I received signout/turn over of care on this patient from Dr. Mai; please see his note for complete H+P. In brief, patient is in ED for AMS, found to have low-grade fever (38 C) in ED. Test results are pending at time of signout; he has already been given cefepime and metronidazole after urine sample obtained as well as blood cultures. Patient became increasingly awake and alert early in my shift. He began to interact intelligibly with ED staff including myself. He is c/o right hand/thumb pain due to gout. He does make some odd statements during my discussion with him (such as answering "I'm fine" when I ask location (to ascertain level of orientation), then "I'm good" when I ask a second time; he does answer appropriately when I ask a third time). He seems uncertain of most of his answers to my questions. When I ask him if he has taken any drugs recently, he does not answer; rather, he diverts his gaze away, then rolls his eyes when I ask a second time. He is given IV toradol for his pain. As he became more awake and conversant, he also was making increasingly loud and increasingly frequent sounds which seemed more consistent with mental distress than pain (he could not offer explanation when I asked him several times why he was making these sounds). I was notified by ED RN that patient was c/o pruritic rash shortly after I took over care of this patient. I reassessed him and noted hives on upper anterior chest, lower neck, and mid/lower abdominal wall; he is intermittently scratching at these areas. His airway is widely patent (no isaac/posterior oropharyngeal swelling), lungs CTA bilaterally, no respiratory distress, and normal/high- normal blood pressures. The vancomycin was running at the time of this rash and thus I instructed ED RN to stop the infusion of vancomycin. He is then given 125mg IV solumedrol and 25 mg IV diphenhydramine; the rash and pruritis significantly improved subsequent to these interventions. However, his yelling out of unintelligible noises (despite being able to give intelligible answers to questions) and agitation increased and he is thus given 2mg IV lorazepam with good result (subsequently calm, stopped yelling out, then drowsy but easily awoken to voice). Unremarkable CBC, ER abdominal panel (mild leukocytosis with WBC 12.4). UDS positive for amphetamines and methamphetamines. Given level of AMS along with fever (albeit low-grade), plan is to admit for observation until mental status improves and follow culture results and appropriate repeat blood tests. I d/w [facility] who accepts patient to [facility]. Discharge Plan Discharge Patient Disposition: 66 [facility] DC/Xfer Condition: Stable Clinical Impression: AMS (altered mental status) Interventions: ED Admission Assessment Last Done: 03/08/24 00:22
== END 2024-03-08 12:50 | disposition home or self-care (01) ==
LOC: ED 18:05 → MS2 18:05
PROVIDERS: ADMIT Hospitalist; ATTEND Hospitalist
DX: Z91.128 Patient's intentional underdosing of medication regimen for other reason; T50.4X6A Underdosing of drugs affecting uric acid metabolism, initial encounter; I10 Essential (primary) hypertension; F15.10 Other stimulant abuse, uncomplicated; E66.9 Obesity, unspecified; Z87.820 Personal history of traumatic brain injury; Z68.31 Body mass index [BMI] 31.0-31.9, adult; F10.10 Alcohol abuse, uncomplicated; E87.8 Other disorders of electrolyte and fluid balance, not elsewhere classified; R73.9 Hyperglycemia, unspecified; F41.8 Other specified anxiety disorders; E78.2 Mixed hyperlipidemia; R41.82 Altered mental status, unspecified; M1A.9XX1 Chronic gout, unspecified, with tophus (tophi)